=== PATIENT | male | born 1985 | race Caucasian/White ===

== ENCOUNTER → 2018-05-31 | Outpatient (REF) | payer OTHER | LOC: M SFHCLERA 11:35 | DX: J02.9 Acute pharyngitis, unspecified (principal) ==

== ENCOUNTER 2025-03-24 17:24 | Emergency (ER) | payer OTHER ==
[~2025-03-24] VITALS: Ht 188 cm; Wt 72.0 kg
[2025-03-24 18:54] LABS: MEAN CORPUSCULAR HEMOGLOBIN 30.7 pg (27.0-33.0); MEAN CORPUSCULAR HGB CONC 34.8 g/dl (32.0-36.5); MEAN CORPUSCULAR VOLUME 88.1 fl (80.0-96.0); PLATELET COUNT, AUTOMATED 222 10^3/uL (150-450); RED BLOOD COUNT 5.22 10^6/uL (4.30-6.10); WHITE BLOOD COUNT 16.8 10^3/uL (4.0-10.0)
[2025-03-24 19:26] LABS: ETHYL ALCOHOL (ETHANOL) < 0.003 % (0.000-0.010)
[2025-03-24 19:28] LABS: ALKALINE PHOSPHATASE 74 U/L (40-129); ALT/SGPT 13 U/L (7.0-40); AST/SGOT 10 U/L (<34); BILIRUBIN,DIRECT 0.3 MG/DL (<0.4); BILIRUBIN,TOTAL 0.9 MG/DL (0.3-1.2); BLOOD UREA NITROGEN 17 MG/DL (9-23); CARBON DIOXIDE LEVEL 27 MMOL/L (20-31); CHLORIDE LEVEL 106 MMOL/L (98-107); CREATININE FOR GFR 1.02 MG/DL (0.70-1.30); GLOMERULAR FILTRATION RATE > 90.0 (>60); GLUCOSE, FASTING 105 MG/DL (60-100); POTASSIUM SERUM 4.5 MMOL/L (3.5-5.1); SALICYLATE LEVEL < 3.0 MG/DL (<30); SODIUM LEVEL 143 MMOL/L (136-145); TOTAL PROTEIN 7.6 G/DL (5.7-8.2)
[2025-03-24 19:30] LABS: THYROID STIMULATING HORMONE 1.697 uIU/ML (0.55-4.78)
[2025-03-24 19:55] LABS: HIV 1&2 SCREEN NEGATIVE (NEGATIVE)
[2025-03-24] MEDS ORDERED: HOME MED LIST COMPLETE! XX SCH (20:40)
[2025-03-24 20:47] LABS: AMPHETAMINES LEVEL URINE NEGATIVE (NEGATIVE); BARBITURATES URINE NEGATIVE (NEGATIVE); BENZODIAZEPINES URINE NEGATIVE (NEGATIVE); COCAINE METABOLITE URINE NEGATIVE (NEGATIVE)
[2025-03-24 20:48] LABS: CANNABINOIDS URINE POSITIVE (NEGATIVE); METHADONE URINE NEGATIVE (NEGATIVE); OPIATES URINE NEGATIVE (NEGATIVE); PHENCYCLIDINE URINE NEGATIVE (NEGATIVE)
[2025-03-24 22:10] VITALS: BP 136/96; TEMP 98.4; O2SAT 98
== END 2025-03-24 22:33 | disposition home or self-care (01) ==
LOC: M ED 17:24
DX: F32.A Depression, unspecified (principal)